=== PATIENT | female | born 1965 ===

== ENCOUNTER 2017-04-23 09:39 | Emergency (ER) | payer BC ==
--- NOTE | 2017-04-23 12:33 | RAD ---
HISTORY: Left leg pain COMPARISONS: None relevant TECHNIQUE: Multiple transverse and longitudinal ultrasound images were obtained of the left lower extremity from the level of the common femoral vein inferiorly through to the infrapopliteal veins using grayscale, color Doppler, and spectral Doppler imaging with and without compression and with augmentation. Comparison images were obtained of the contralateral common femoral vein. FINDINGS: VEINS: The venous system of the left lower extremity is compressible throughout its course, with normal flow on color Doppler imaging and normal response to augmentation on spectral Doppler imaging. SOFT TISSUES: Unremarkable. OTHER FINDINGS: None. IMPRESSION: NO LEFT LOWER EXTREMITY DEEP VEIN THROMBOSIS
[2017-04-23 12:36] VITALS: BP 100/53
--- NOTE | 2017-04-23 12:37 | UC ---
Lower Extremity/Ankle HPI - HPI Summary HPI Summary: left leg pain x 6 months pain starts for her knee and goes down to her lower leg no known injury , pt. does a lot of traveling, no swelling, no cough or sob - History of Current Complaint Chief Complaint: UCLowerExtremity Stated Complaint: LEFT LEG PAIN Time Seen by Provider: 04/23/17 10:21 Hx Obtained From: Patient Onset/Duration: Gradual Onset, Lasting Weeks - 6 months, Still Present Severity Initially: Moderate Severity Currently: Moderate Aggravating Factor(s): Standing, Ambulation Alleviating Factor(s): Nothing Able to Bear Weight: Yes - Allergies/Home Medications Allergies/Adverse Reactions: Allergies Allergy/AdvReac Type Severity Reaction Status Date / Time No Known Allergies Allergy Verified 04/23/17 10:22 Home Medications: Home Medications NK [No Home Medications Reported] 04/23/17 [History Confirmed 04/23/17] PMH/Surg Hx/FS Hx/Imm Hx Previously Healthy: Yes - Surgical History Surgical History: Yes Surgery Procedure, Year, and Place: Tonsils. [place] teeth - Family History Known Family History: Negative: Diabetes - Social History Alcohol Use: Occasionally Substance Use Type: None Smoking Status (MU): Never Smoked Tobacco Review of Systems Constitutional: Negative Skin: Negative Eyes: Negative ENT: Negative Respiratory: Negative Is Patient Immunocompromised?: No All Other Systems Reviewed And Are Negative: Yes Physical Exam Triage Information Reviewed: Yes Appearance: Well-Appearing, No Pain Distress, Well-Nourished Vital Signs: Initial Vital Signs Temp 98.1 F 04/23/17 10:16 Pulse 71 04/23/17 10:16 Resp 14 04/23/17 10:16 BP 135/54 04/23/17 10:16 Pulse Ox 98 04/23/17 10:16 Vital Signs Reviewed: Yes Eye Exam: Normal Eyes: Positive: Conjunctiva Clear ENT: Positive: Normal ENT inspection, Hearing grossly normal, Pharynx normal, Pharyngeal erythema Neck exam: Normal Neck: Positive: Supple, Nontender, No Lymphadenopathy Respiratory: Positive: Chest non-tender, Lungs clear, Normal breath sounds Cardiovascular: Positive: RRR, No Murmur, Pulses Normal Musculoskeletal Exam: Normal Musculoskeletal: Positive: Strength Intact, ROM Intact, No Edema, Other: - left leg: no swelling , no tednerenss, no erythema , no calf tenderness, negative jonathan sign Neurological Exam: Normal Skin Exam: Other Diagnostics - Laboratory Diagnostic Studies Completed/Ordered: left lower leg doppler study: negative for DVT Lower Extremity Course/Dx - Differential Dx/Diagnosis Provider Diagnoses: left leg pain Discharge - Discharge Plan Condition: Stable Disposition: HOME Patient Education Materials: Leg Pain (ED) Referrals: Latonia Grant MD [Primary Care Provider] - 7 Days Additional Instructions: lower ext doppeler study negative for DVT
== END 2017-04-23 12:36 | disposition home or self-care (01) ==
LOC: UCCORT 09:39
DX: M79.605 Pain in left leg (principal)
CPT/HCPCS: 99212; G0463